=== PATIENT | male | born 1955 | race Caucasian/White ===

== ENCOUNTER 2020-08-24 03:00 | Emergency (ER) | payer BC, OTHER ==
[~2020-08-24] VITALS: Ht 170.2 cm; Wt 77.1 kg
[2020-08-24] MEDS ORDERED: PROTONIX PO STA (03:11)
[2020-08-24] MEDS ORDERED: LIDOCAINE VISCOUS MM STA (03:11)
[2020-08-24] MEDS ORDERED: MYLANTA PO STA (03:11)
[2020-08-24] MEDS ORDERED: PROTONIX PO ONE (03:18)
[2020-08-24] MEDS ORDERED: LIDOCAINE VISCOUS ONE (03:18)
[2020-08-24] MEDS ORDERED: MYLANTA ONE (03:19)
--- NOTE | 2020-08-24 03:22 | ER.PDOC ---
General Chief Complaint: Abdomen Pain Stated Complaint: ABD PAIN Time seen by MD: 03:10 Source: patient Exam Limitations: clinical condition History of Present Illness Initial Comments 65-year-old male recently diagnosed with gastritis approximately 3 weeks ago was provided prescribed Carafate and Pepcid patient had immediately proved abdominal pain so he stopped taking the medications after 2 days. Tonight patient was eating spaghetti and meatballs and had onset of significant severe abdominal pain shortly after. Patient has taken several ibuprofens todayBut states he was unable to take the Carafate pills because they were too big to swallow.Patient denies any other recent illnesses and states otherwise he has been in his usual state of health.He does endorse some nausea with abdominal pain but denies any other associated symptoms. Timing/Duration: 4-6 hours Severity/Quality: severe, burning Radiation: epigastric Associated Symptoms: heartburn Exacerbated by: food Relieved By: antacids Allergies: Coded Allergies: No Known Allergies (Unverified , 03/05/17) Vital Signs First Vital Signs Date Time Temp Pulse Resp B/P (MAP) Pulse Ox O2 Delivery O2 Flow Rate FiO2 08/24/20 03:09 97.6 69 20 100 08/24/20 03:09 Room Air 08/24/20 03:39 151/88 (109) Last Vital Signs Date Time Temp Pulse Resp B/P (MAP) Pulse Ox O2 Delivery O2 Flow Rate FiO2 08/24/20 03:39 151/88 (109) 08/24/20 03:09 97.6 69 20 08/24/20 03:09 100 Room Air Physical Exam General Appearance: Moderate Distress HEENT: PERRL/EOMI, Normal ENT Inspection Neck: Non-Tender, Full Range of Motion, Supple Respiratory: chest non-tender, lungs clear, normal breath sounds, no respiratory distress Cardiovascular: Normal Peripheral Pulses, Regular Rate, Rhythm Gastrointestinal: Normal Bowel Sounds, Tenderness (Patient doubled over in pain, Voluntary guarding.) Extremities: Normal Range of Motion, Non-Tender, Normal Inspection Neurologic/Psychiatric: outside b2b sales II-XII NML as Tested, No Motor/Sensory Deficits Skin: Normal Color, Warm/Dry Results/Orders Results/Orders Orders - GIOVANNI AKERS DO Mag Hydrox/Aluminum Hyd/Simeth (Mylanta) (08/24/20 03:11) Lidocaine Hcl (Lidocaine Viscous) (08/24/20 03:11) Pantoprazole Sodium (Protonix) (08/24/20 03:11) Pantoprazole Sodium (Protonix) (08/24/20 03:18) Lidocaine Hcl (Lidocaine Viscous) (08/24/20 03:18) Mag Hydrox/Aluminum Hyd/Simeth (Mylanta) (08/24/20 03:19) Polyethylene Glycol 3350 (Miralax) (08/24/20 04:00) Polyethylene Glycol 3350 (Miralax) (08/24/20 04:08) Acetaminophen With Codeine (Tylenol #3) (08/24/20 04:36) Acetaminophen With Codeine (Tylenol #3) (08/24/20 04:40) Vital Signs Date Time Temp Pulse Resp B/P (MAP) Pulse Ox O2 Delivery O2 Flow Rate FiO2 08/24/20 03:39 151/88 (109) 08/24/20 03:09 97.6 69 20 08/24/20 03:09 97.6 69 20 100 Room Air 08/24/20 03:09 97.6 69 20 100 Administered Medications Medications (Trade) Dose Ordered Sig/Monica Route PRN Reason Start Time Stop Time Status Last Admin Dose Admin Acetaminophen/ Codeine Phosphate (Tylenol #3) 1 each OT STAT PO 08/24/20 04:40 08/24/20 04:41 DC 08/24/20 04:43 1 EACH Lidocaine HCl (Lidocaine Viscous) 15 ml STAT STAT MM 08/24/20 03:11 08/24/20 03:13 DC 08/24/20 03:22 15 ML Pantoprazole Sodium (Protonix) 40 mg STAT STAT PO 08/24/20 03:11 08/24/20 03:13 DC 08/24/20 03:22 40 MG Polyethylene Glycol (Miralax) 17 gm STAT STAT PO 08/24/20 04:08 08/24/20 04:11 DC 08/24/20 04:08 17 GM Progress Progress Patient given Maalox and viscous lidocaine in addition given Protonix 40 mg p.o. Abdominal pain improved. ER DEPART Departure Time of Disposition: 04:50 Disposition: 01 HOME / SELF CARE / HOMELESS Impression: Primary Impression: Abdominal pain Additional Impression: Gastritis Condition: Improved Patient Instructions: Abdominal Pain, Diet for Gastroesophageal Reflux Disease, Adult, Bddh-mg-Aper, Gastrin Referrals: TIGRE BROWN MD (PCP) PRIMARY CARE PROVIDER Duration or Time Spent with Pa: 20 Problem Qualifiers GIOVANNI AKERS DO Aug 24, 2020 03:22
[2020-08-24 03:39] VITALS: BP 151/88
[2020-08-24] MEDS ORDERED: MIRALAX ONE (04:00)
[2020-08-24] MEDS ORDERED: MIRALAX PO STA (04:08)
[2020-08-24] MEDS ORDERED: TYLENOL #3 PO ONE (04:36)
[2020-08-24] MEDS ORDERED: TYLENOL #3 PO STA (04:40)
== END 2020-08-24 04:50 | disposition home or self-care (01) ==
LOC: ER 03:00
DX: K29.70 Gastritis, unspecified, without bleeding (principal)
CPT/HCPCS: 99284; J3490 ×2